=== PATIENT | male | born 1965 | race Caucasian/White ===

== ENCOUNTER 2021-12-10 12:03 | Emergency (ER) | payer SELFPAY ==
[2021-12-10] VITALS (22 sets, daily range): BP systolic 118–153; BP diastolic 94–114; PULSE 60–72; RESP 16; TEMP 36.4; O2SAT 96–98; BMI 45.4
--- NOTE | 2021-12-10 13:14 | CRLHL7_ITS ---
For Patients: As a result of the Century Cures Act, medical imaging exams and procedure reports are released immediately into your electronic medical record. You may view this report before your referring provider. If you have questions, please contact your health care provider. INDICATION: Vertigo TECHNIQUE: CT head without contrast. COMPARISON: None. FINDINGS: CSF spaces: Within normal limits for age. Brain parenchyma: The franco-white differentiation is normal. No sign of mass, hemorrhage, or midline shift. Skull base and calvarium: Mild mucosal thickening paranasal sinuses. Exostosis at the outer table of the left occipital bone measuring 8 millimeters. The visualized orbits are grossly unremarkable. No skull fractures. IMPRESSION: 1. No intracranial bleed or mass effect. 2. No acute finding to explain the patient`s symptoms. Please note that all CT scans at this facility use dose modulation, iterative reconstruction, and/or weight-based dosing when appropriate to reduce radiation dose to as low as reasonably achievable. Dictated by Matias Cordova MD @ 12/10/2021 2:05:14 PM (Electronically Signed)
[2021-12-10 13:43] LABS: Basophils Absolute Auto 0.02 K/uL (0.00-0.30); Basophils Percent Auto 0.3 % (0.0-3.0); Eosinophils Absolute Auto 0.24 K/uL (0.00-0.50); Eosinophils Percent Auto 3.3 % (0.0-7.0); Hematocrit 49.1 % (37.0-53.0); Hemoglobin* 16.3 gm/dL (13.5-17.5); Lymphocytes Absolute Auto 2.43 K/uL (0.90-2.90); Mean Corpuscular HGB Conc 33 gm/dL (32-36); Mean Corpuscular Hemoglobin 30 pg (26-34); Mean Corpuscular Volume 90 fL (80-100); Monocytes Percent Auto 8.3 % (0.0-11.0); Neutrophils Absolute Auto 4.06 K/uL (1.7-7.0); Neutrophils Percent Auto 55.1 % (42.0-72.0); Platelet Count* 277 K/uL (140-440); RDW Coefficient of Variation % 14.3 % (11.5-15.5); Red Blood Count 5.47 m/uL (4.30-5.90); White Blood Count* 7.36 K/uL (4.50-11.00)
[2021-12-10 13:53] LABS: Chloride* 107 mmol/L (96-114); Potassium* 4.3 mmol/L (3.6-5.1); Sodium* 140 mmol/L (135-149)
[2021-12-10 13:56] LABS: Blood Urea Nitrogen* 13 mg/dL (7-30); Carbon Dioxide* 26 mmol/L (20-32); Creatinine* 0.9 mg/dL (0.5-1.5); Est. Creatinine Clearance* 78.57; Estimated Glomerular Filt Rate 101 ml/min
[2021-12-10 13:57] LABS: Calcium* 8.9 mg/dL (8.4-10.6); Glucose* 110 mg/dL (60-115)
[2021-12-10 14:00] LABS: Slide Review Reflex No
[2021-12-10 14:08] LABS: C Reactive Protein* < 0.5 mg/dL (0.5-1.0)
[2021-12-10 14:32] LABS: PCR FLU A Negative PCR FLU A (Negative); PCR FLU B Negative PCR FLU B (Negative); PCR RSV Negative PCR RSV (Negative)
[2021-12-10 14:35] LABS: SARS PCR* Negative SARS-CoV-2 (Negative)
--- NOTE | 2021-12-10 17:29 | ED_ITS ---
HPI - Neuro Symptoms/Deficit General Date Seen: 12/10/21 Chief Complaint: Unspecified Complaint, Adult Stated Complaint: Balance Issues/Dizziness Time Seen by Provider: 12/10/21 13:12 Source: patient and family Mode of arrival: ambulatory Limitations: no limitations History of Present Illness HPI Narrative: Patient is a very nice 52 for old gentleman name Nicho. Presents here after waking up this morning with the intense feeling that he can not walk with no balance. When asked him if it is worse with anything he says with moving his head around it seemingly is worse for little while he does not report that the room is spinning, or that he seemingly is on a ship. She feels somewhat weak in his legs when he walks asked step out all the time. He says it has improved as the days gone on, when he went to bed last night was normal. He feels slightly nauseous with this but not greatly, and has not vomited. No history of any fevers chills sweats, recent symptoms of infection. He did however hit his head 48 hours ago, when he was doing some work. Was more of a glancing blow after proximally falling down some some ladder for 2 ft. No previous history of head injury, vertigo, strokes, or anything else. He is a lifetime nonsmoker, does not drink any alcohol for greater than 30 years. Presents here with his . Denies any numbness tingling weakness noted in his hands or his legs, no visual changes, no headache associated with this no hearing or ear symptoms. Not take any medications to try to make this better or worse. His last known normal was last night at approximately 10:00 p.m. Timing confirmed by: spouse Quality: weak Relieving factors: none Exacerbating factors: none Context: sudden onset and recent trauma On Anticoagulants: No Associated symptoms: denies other symptoms Treatments Prior to Arrival: none Related Data Home Medications Medication Instructions Recorded Confirmed No Known Home Medications 12/10/21 12/10/21 Allergies Allergy/AdvReac Type Severity Reaction Status Date / Time No Known Drug Allergies Allergy Verified 12/10/21 12:17 Review of Systems Status of ROS: Reports: 10 or more systems reviewed and unremarkable except as noted in History and below PFSH PFS Social History Smoking Status: Never smoker Do you use any of these nicotine containing products: Smokeless Tobacco Second hand tobacco smoke exposure: No How often do you have a drink containing alcohol: never AUDIT-C Alcohol total score: 0 Non-prescribed substance use: denies use service: No Exam Narrative: Exam Narrative: Patient is very nice gentleman no apparent distress, he is speaking to me normally, oriented x3 nontoxic, pupils are equal round reactive to light, he has mild bilateral horizontal nystagmus of 2 beats. No vertical component, fundi appear normal, cranial nerves 3-12 are normal, mouth opening normal he did try to whistle but is unable to whistle which is normal for him. Hearing is normal bilaterally, neck is supple full range of motion, TMs are normal, there is no lymphadenopathy, carotid upstrokes are equal bilaterally. Chest is clear bilaterally no wheezing crackles noted heart sounds are normal, abdomen soft there is no guarding no past splenomegaly bowel sounds are normal, pelvis normal stable. Normal power in his upper lower extremities both proximal and distal is assessed and normal fine motor movements of fingers nose testing is normal. Rapid alternating movements is normal. I did have him tandem walking he did step out after 3-4 but then corrected himself and was able to tandem walk normally. Skin reveals no petechiae or rashes. Const: Vital Signs, click to edit/add: Vital Signs - 24 hr 12/10/21 12:18 12/10/21 12:45 12/10/21 13:02 Temperature 97.6 F Pulse Rate 68 Pulse Rate [Right Pulse Oximeter] 72 67 Respiratory Rate 16 Blood Pressure 141/104 H Blood Pressure [Ri ght Upper Arm] 153/96 H 142/105 H Pulse Oximetry 97 97 98 Oxygen Delivery Me thod Room Air Room Air 12/10/21 13:04 12/10/21 13:19 12/10/21 13:20 Temperature Pulse Rate 66 64 65 Pulse Rate [Right Pulse Oximeter] Respiratory Rate Blood Pressure 138/105 H Blood Pressure [Ri ght Upper Arm] Pulse Oximetry 98 98 98 Oxygen Delivery Me thod 12/10/21 13:30 12/10/21 13:32 12/10/21 13:33 Temperature Pulse Rate 64 67 65 Pulse Rate [Right Pulse Oximeter] Respiratory Rate Blood Pressure 143/100 H Blood Pressure [Ri ght Upper Arm] Pulse Oximetry 97 97 97 Oxygen Delivery Wy thod 12/10/21 13:46 12/10/21 13:47 12/10/21 13:48 Temperature Pulse Rate 60 62 66 Pulse Rate [Right Pulse Oximeter] Respiratory Rate Blood Pressure 118/94 H Blood Pressure [Ri ght Upper Arm] Pulse Oximetry 98 97 98 Oxygen Delivery Me thod 12/10/21 14:00 12/10/21 14:02 12/10/21 14:03 Temperature Pulse Rate 63 61 64 Pulse Rate [Right Pulse Oximeter] Respiratory Rate Blood Pressure 134/99 H Blood Pressure [Ri ght Upper Arm] Pulse Oximetry 97 97 97 Oxygen Delivery Me thod 12/10/21 14:15 12/10/21 14:17 12/10/21 14:30 Temperature Pulse Rate 65 62 60 Pulse Rate [Right Pulse Oximeter] Respiratory Rate Blood Pressure 133/95 H Blood Pressure [Ri ght Upper Arm] Pulse Oximetry 97 98 96 Oxygen Delivery Me thod 12/10/21 14:32 12/10/21 14:33 12/10/21 14:45 Temperature Pulse Rate 61 61 66 Pulse Rate [Right Pulse Oximeter] Respiratory Rate Blood Pressure 144/97 H Blood Pressure [Ri ght Upper Arm] Pulse Oximetry 97 96 97 Oxygen Delivery Me thod 12/10/21 14:47 Temperature Pulse Rate 66 Pulse Rate [Right Pulse Oximeter] Respiratory Rate Blood Pressure 142/114 H Blood Pressure [Ri ght Upper Arm] Pulse Oximetry 97 Oxygen Delivery Me thod Course Course Hospital Course: I discussed with the patient that his laboratory work was normal. I can find no acute findings on CT by my review or the radiology review. His troponin is negative, his testing for viral etiology is negative. I suggested that we do an MRI but he declined this maneuver. Explained to him that we may be missing a stroke, and he is well aware of this. He would like to go and follow up with Primary Care, I have left the window open however for him to come back and be seen. At any point. If signs and symptoms of worsening occur, or further workup is needed. Vital Signs Vital signs: Initial Vital Signs Temperature 97.6 F 12/10/21 12:18 Temperature Source Temporal Artery Scan 12/10/21 12:18 Pulse Rate 72 12/10/21 12:18 Pulse Rhythm 12/10/21 12:18 Pulse Strength 3+ Normal 12/10/21 12:18 Respiratory Rate 16 12/10/21 12:18 Blood Pressure 153/96 H 12/10/21 12:18 Blood Pressure Mean 115 12/10/21 12:18 Blood Pressure Position Sitting 12/10/21 12:18 Pulse Oximetry 97 12/10/21 12:18 Oxygen Delivery Method 12/10/21 12:18 Vital Signs Temperature 97.6 F 12/10/21 12:18 Pulse Rate 72 12/10/21 12:18 Respiratory Rate 16 12/10/21 12:18 Blood Pressure 153/96 H 12/10/21 12:18 Pulse Oximetry 97 12/10/21 12:18 Oxygen Delivery Method 12/10/21 12:18 Temperature 97.6 F 12/10/21 12:18 Pulse Rate 66 12/10/21 14:47 Respiratory Rate 16 12/10/21 12:18 Blood Pressure 142/114 H 12/10/21 14:47 Pulse Oximetry 97 12/10/21 14:47 Oxygen Delivery Method 12/10/21 12:45 MDM - Neuro Symptoms/Deficit MDM Narrative Medical decision making narrative: Life-threatening differential diagnosis considered include, CVA, other differential diagnosis include BPPV, labyrinthitis, Meniere's disease, vestibular neuronitis, migraine, multiple sclerosis, otitis media, viral syndrom e as well as other etiologies Medical Records Attestation: I reviewed the patient's medical records. Lab Data Attestation: I reviewed the patient's lab results. Labs: Lab Results 12/10/21 12/10/21 12/10/21 Range/Units 13:14 13:25 13:25 WBC 7.36 (4.50-11.00) K/uL RBC 5.47 (4.30-5.90) m/uL Hgb 16.3 (13.5-17.5) gm/dL Hct 49.1 (37.0-53.0) % MCV 90 (80-100) fL MCH 30 (26-34) pg MCHC 33 (32-36) gm/dL RDW Coeff of Ovi 14.3 (11.5-15.5) % Plt Count 277 (140-440) K/uL Neut % (Auto) 55.1 (42.0-72.0) % Lymph % (Auto) 33.0 (20-44) % [place] % (Auto) 8.3 (0.0-11.0) % Eos % (Auto) 3.3 (0.0-7.0) % Baso % (Auto) 0.3 (0.0-3.0) % Neut # (Auto) 4.06 (1.7-7.0) K/uL Lymph # (Auto) 2.43 (0.90-2.90) K/uL [place] # (Auto) 0.60 (0.00-0.90) K/UL Eos # (Auto) 0.24 (0.00-0.50) K/uL Baso # (Auto) 0.02 (0.00-0.30) K/uL Abs Immat Gran (auto) 0.00 (0.00-0.30) K/uL Sodium 140 (135-149) mmol/L Potassium 4.3 (3.6-5.1) mmol/L Chloride 107 (96-114) mmol/L Carbon Dioxide 26 (20-32) mmol/L BUN 13 (7-30) mg/dL Creatinine 0.9 (0.5-1.5) mg/dL Estimated Creat Clear 78.57 Estimated GFR 101 ml/min Glucose 110 (60-115) mg/dL Calcium 8.9 (8.4-10.6) mg/dL C-Reactive Protein < 0.5 L (0.5-1.0) mg/dL SARS-CoV-2 (PCR) (Negative) Influenza Type A (PCR) (Negative) Influenza Type B (PCR) (Negative) RSV (PCR) (Negative) POC Troponin I 0.00 L (0.01-0.04) ng/ml 12/10/21 Range/Units 13:25 WBC (4.50-11.00) K/uL RBC (4.30-5.90) m/uL Hgb (13.5-17.5) gm/dL Hct (37.0-53.0) % MCV (80-100) fL MCH (26-34) pg MCHC (32-36) gm/dL RDW Coeff of Ovi (11.5-15.5) % Plt Count (140-440) K/uL Neut % (Auto) (42.0-72.0) % Lymph % (Auto) (20-44) % [place] % (Auto) (0.0-11.0) % Eos % (Auto) (0.0-7.0) % Baso % (Auto) (0.0-3.0) % Neut # (Auto) (1.7-7.0) K/uL Lymph # (Auto) (0.90-2.90) K/uL [place] # (Auto) (0.00-0.90) K/UL Eos # (Auto) (0.00-0.50) K/uL Baso # (Auto) (0.00-0.30) K/uL Abs Immat Gran (auto) (0.00-0.30) K/uL Sodium (135-149) mmol/L Potassium (3.6-5.1) mmol/L Chloride (96-114) mmol/L Carbon Dioxide (20-32) mmol/L BUN (7-30) mg/dL Creatinine (0.5-1.5) mg/dL Estimated Creat Clear Estimated GFR ml/min Glucose (60-115) mg/dL Calcium (8.4-10.6) mg/dL C-Reactive Protein (0.5-1.0) mg/dL SARS-CoV-2 (PCR) Negative SARS-CoV-2 (Negative) Influenza Type A (PCR) Negative PCR FLU A (Negative) Influenza Type B (PCR) Negative PCR FLU B (Negative) RSV (PCR) Negative PCR RSV (Negative) POC Troponin I (0.01-0.04) ng/ml ECG Data Attestation: I personally reviewed and interpreted this ECG as follows: Interpretation: Normal sinus rhythm normal EKG with no acute ST wave changes, ventricular rate of 63, QRS QT and MS normal Discharge Plan Discharge Clinical Impression: Vertigo Patient Disposition: Home w/ Parent or Adult Condition: Unchanged Instructions: Vertigo (ED), Lightheadedness (ED), Dizziness (ED) Additional Instructions: Home, rest, use of meclizine which is [id number], if worsening signs and symptoms please return, I want to do an MRI, but he decided against this. Prescriptions: No Action No Known Home Medications Follow Up/Referrals: Provider,Not a Local [Primary Care Provider] - Stand Alone Forms: BIBA Apparels Info Instructions
== END 2021-12-10 15:04 | disposition home or self-care (01) ==
PROVIDERS: Emergency Provider Family Medicine
DX: R42 Dizziness and giddiness (principal)
CPT/HCPCS: 36415; 70450; 80048; 84484; 85025; 86140; 87502; 87634; 87635; 93005; 99283; 99284; 99285